=== PATIENT | male | born 1985 | race African-American/Black ===

== ENCOUNTER 2016-07-17 16:54 | Emergency (ER) | payer OTHER ==
[~2016-07-17] VITALS: Ht 170.2 cm; Wt 99.8 kg
[~2016-07-17 16:54] MED LIST: ANBESOL9 G1 TP; HYDROCODON-ACE1 EA15 ORAL; KEFLEX500 MG ORAL
[2016-07-17 17:10] VITALS: BP 120/71
[2016-07-17] MEDS ORDERED: IBUPROFEN600 MG ORAL (17:22)
[2016-07-17] MEDS ORDERED: CEPHALEXIN500 MG ORAL (17:22)
[2016-07-17] MEDS ORDERED: BACTRIM DS TAB1 EAC1 ORAL (17:22)
[2016-07-17 17:30] VITALS: BP 120/71
--- NOTE | 2016-07-17 22:12 | Emergency Room Report ---
History of Present Illness General Chief Complaint: Skin Rash/Abscess Source: Patient Present Illness [facility] The patient is a 30-year-old male presenting for bumps he noticed on his chest. He noticed this approximately one week prior. They are tender. Pain described as a 6/10 dull ache and is worse with touch. Pain does not radiate. He states that he popped one and noticed white discharge. He denies any other symptoms including nausea, vomiting, fever, chills Allergies: Coded Allergies: No Known Allergies (Unverified , 01/05/16) Patient History Past Medical History: see triage record Pertinent Family History: none Reviewed Nursing Documentation: PMH: Agreed, PSxH: Agreed Nursing Documentation-PMH Past Medical History: No Stated History Hx Diabetes: Yes Hx Gastrointestinal Problems: Yes - Heartburn Review of Systems All Other Systems: negative except mentioned in HPI Physical Exam Vital Signs Date Time Temp Pulse Resp B/P Pulse Ox O2 Delivery O2 Flow Rate FiO2 07/17/16 17:02 98.8 65 14 120/71 95 Room Air Sp02 EP Interpretation: reviewed, normal General Appearance: no apparent distress, alert, GCS 15, non-toxic Head: normocephalic, atraumatic Eyes: bilateral eye PERRL, bilateral eye normal inspection ENT: hearing grossly normal, normal pharynx, no angioedema, normal voice Respiratory: chest non-tender, lungs clear, normal breath sounds, speaking full sentences Musculoskeletal: back normal, gait/station normal, normal range of motion Neurologic: alert, oriented x3, responsive, motor strength/tone normal, sensory intact, speech normal Psychiatric: judgement/insight normal, memory normal, mood/affect normal, no suicidal/homicidal ideation Skin: well hydrated, normal turgor, other - There are 3 < 2cm indurated nodules of the chest. Non fluctuant. Erythematous. Tender. No DC. Lymphatic: no adenopathy Medical Decision Making PA Attestation Dr. Murphy is my supervising physician. Patient management was discussed with my supervising physician Diagnostic Impression: Primary Impression: Abscess ER Course The patient is a 30-year-old male presenting for bumps he noticed on his chest. Differential diagnoses considered but not limited to: abscess, cellulitis, insect bite, folliculitis PE: vitals WNL. NAD There are 3 < 2cm indurated nodules of the chest. Non fluctuant. Erythematous. Tender. No DC. Findings most consistent with abscess. Not ready for incision and drainage The patient be placed on antibiotics and is given indications to return for I&D. ER precautions given Chest X-Ray Diagnostic Results Chest X-Ray Ordered: No Last Vital Signs Date Time Temp Pulse Resp B/P Pulse Ox O2 Delivery O2 Flow Rate FiO2 07/17/16 17:30 98.8 14 120/71 95 Room Air 07/17/16 17:02 65 Status: improved Disposition: HOME, SELF-CARE Condition: Improved Scripts Ibuprofen* (MOTRIN*) 600 Mg Tablet 600 MG ORAL Q8H Y for For Pain, #30 TAB 0 Refills Prov: ALEXAANJEN P.A. 07/17/16 Trimethoprim/Sulfamethoxazole 160/800* (BACTRIM DS TABLET*) 1 Each Tablet 1 TAB ORAL TWICE A DAY, #14 TAB Prov: JEN BURRIS P.A. 07/17/16 Cephalexin* (KEFLEX*) 500 Mg Capsule 500 MG ORAL EVERY 6 HOURS, #28 CAP Prov: JEN BURRIS P.A. 07/17/16 Referrals: [facility],REFERRING (PCP) Patient Instructions: Abscess Additional Instructions: I discussed my findings with the patient. All questions and concerns have been answered. Treatment and medication compliance have been addressed. I advised the patient that they need to follow up with PMD in 3-5 days. Return to ED if symptoms worsen, new symptoms arise, or if needed for any reason. Patient verbalized understanding of discharge instructions. The patient is given indications to return for incision and drainage JEN BURRIS Jul 17, 2016 22:12
== END 2016-07-17 17:45 | disposition home or self-care (01) ==
LOC: EMR 17:39
DX: L02.213 Cutaneous abscess of chest wall (principal); R22.2 Localized swelling, mass and lump, trunk; R21 Rash and other nonspecific skin eruption; E11.9 Type 2 diabetes mellitus without complications; R12 Heartburn
CPT/HCPCS: 99284

== ENCOUNTER 2017-03-12 18:54 | Emergency (ER) | payer OTHER ==
[~2017-03-12] VITALS: Ht 172.7 cm; Wt 101.2 kg
[~2017-03-12 18:54] MED LIST changes: +BACTRIM DS TAB1 EAC1 ORAL; +CEPHALEXIN500 MG ORAL; +IBUPROFEN600 MG ORAL
[2017-03-12] MEDS ORDERED: CEPHALEXIN500 MG ORAL (19:24)
[2017-03-12] MEDS ORDERED: IBUPROFEN600 MG ORAL (19:24)
[2017-03-12] MEDS ORDERED: BACTRIM DS TAB1 EAC1 ORAL (19:24)
--- NOTE | 2017-03-12 19:25 | Emergency Room Report ---
History of Present Illness General Chief Complaint: Skin Rash/Abscess Source: Patient (Lokesh Mcclain) Present Illness HPI 31 yo male patient presents to ER complaining of abscess on chest. Patient reports abscess has been present for 2 days. Patient reports abscess is painful to touch. Patient denies drainage from abscess. Patient reports history of similar symptoms in the past; states he had abscess drained in ER previously. Patient states he has not been seen by PCP or desk operator for further evaluation and treatment. Patient denies fever, shortness of breath, rash. (Lokesh Mcclain) Allergies: Coded Allergies: No Known Allergies (Unverified , 01/05/16) Patient History Past Medical History: see triage record Pertinent Family History: none Reviewed Nursing Documentation: PMH: Agreed, PSxH: Agreed (Lokesh Mcclain) Nursing Documentation-PMH Past Medical History: No Stated History Hx Diabetes: Yes Hx Gastrointestinal Problems: Yes - Heartburn (Lokesh Mcclain) Review of Systems All Other Systems: negative except mentioned in HPI (Lokesh Mcclain) Physical Exam Vital Signs Date Time Temp Pulse Resp B/P (MAP) Pulse Ox O2 Delivery O2 Flow Rate FiO2 03/12/17 19:01 97.5 75 16 134/84 99 Room Air Sp02 EP Interpretation: reviewed, normal General Appearance: no apparent distress, alert, GCS 15, non-toxic Head: normocephalic, atraumatic Eyes: bilateral eye normal inspection, bilateral eye PERRL ENT: hearing grossly normal, normal pharynx, no angioedema, normal voice Neck: full range of motion, supple/symm/no masses Respiratory: chest non-tender, lungs clear, normal breath sounds, speaking full sentences Cardiovascular #1: regular rate, rhythm, no edema Musculoskeletal: back normal, gait/station normal, normal range of motion, non- tender, calf tenderness Neurologic: alert, oriented x3, responsive, motor strength/tone normal, sensory intact, speech normal Psychiatric: mood/affect normal Skin: other - chest: 1- 2 cm indurated abcess, TTP, no surrounding cellulitis, no drainage, no pus, does not come to a point (Lokesh Mcclain) Procedures Incision and Drainage Incision and Drainage : Consent: Verbal Site: chest Blade Size: 18 gauge needle I & D Procedure: betadine prep, sterile drapes applied, sterile dressing applied, gauze wick placed Wound Location: chest Wound's Depth, Shape: superficial Patient Tolerated: Well Complications: None Progress aspiration performed bloody drainage (Cole Diego M.D.) Medical Decision Making PA Attestation Dr. Diego is my supervising Physician whom patient management has been discussed with. (Lokesh Mcclain) Diagnostic Impression: Primary Impression: Abscess ER Course Pt. presents to the ED c/o abscess Ddx considered but are not limited to cellulitis, abscess, sebaceous cyst, carbuncle, folliculitis. Vital signs: are WNL, pt. is afebrile ORDERS: None required at this time. ED INTERVENTIONS: Patient was seen and evaluated by Dr. Diego. (see procedure note by Dr. Diego) Wound dressed. DISCHARGE: -Rx provided for Keflex -Rx provided for Bactrim -Rx provided for Ibuprofen At this time pt. is stable for d/c to home. Patient states understanding and agreement to treatment plan. Will provide printed patient care instructions and any necessary prescriptions. Care plan and follow up instructions have been discussed with the patient prior to discharge. Patient instructed to follow-up with primary care provider in 2 - 3 days for wound recheck. Patient questions asked and answered. ER precautions given. Patient instructed to return to ER immediately for any new or worsening of symptoms including but not limited to fever, worsening of pain symptoms. (Lokesh Mcclain) Last Vital Signs Date Time Temp Pulse Resp B/P (MAP) Pulse Ox O2 Delivery O2 Flow Rate FiO2 03/12/17 19:01 97.5 75 16 134/84 99 Room Air (Lokesh Mcclain) Disposition: HOME, SELF-CARE Condition: Stable Scripts Ibuprofen* (MOTRIN*) 600 Mg Tablet 600 MG ORAL Q6H Y for For Pain, #30 TAB Prov: Lokesh Mcclain 03/12/17 Trimethoprim/Sulfamethoxazole 160/800* (BACTRIM DS TABLET*) 1 Each Tablet 1 TAB ORAL TWICE A DAY for 7 Days, #14 TAB Prov: Lokesh Mcclain 03/12/17 Cephalexin* (KEFLEX*) 500 Mg Capsule 500 MG ORAL EVERY 12 HOURS for 7 Days, #14 CAP 0 Refills Prov: Lokesh Mcclain 03/12/17 Patient Instructions: Abscess Additional Instructions: Followup with primary care provider in 3 -5 days. Take medications as directed. Patient questions asked and answered. ER precautions given, patient instructed to return to ER immediately for any new or worsening of symptoms. Lokesh Mcclain Mar 12, 2017 19:24 Cole Diego M.D. Mar 14, 2017 14:05
[2017-03-12 19:41] VITALS: BP 134/84
== END 2017-03-12 19:41 | disposition home or self-care (01) ==
LOC: EMR 19:21
DX: L02.213 Cutaneous abscess of chest wall (principal); E11.9 Type 2 diabetes mellitus without complications
CPT/HCPCS: 99284

== ENCOUNTER 2018-11-02 20:39 | Emergency (ER) | payer OTHER ==
[~2018-11-02] VITALS: Ht 172.7 cm; Wt 107.5 kg
[2018-11-02 21:20] VITALS: BP 144/91
--- NOTE | 2018-11-02 21:20 | NUR ---
ED Nurse Note: pt is AAOx4, VSS, with no acute distress. Pt C/O NUMBNESS TO BILAT HANDS WITH FOR PAST 3 MONTHS W/ INTERMITTENT HAND PAIN IN MORNINGS.
--- NOTE | 2018-11-02 21:41 | Emergency Room Report ---
History of Present Illness General Chief Complaint: General Complaint Source: Patient Present Illness HPI 33-year-old male presents to the ED with numbness and tingling in the hands, following a median nerve distribution, patient denies any aggravating or relieving factors severity is mild, intermittent patient denies any fevers chills chest pain shortness of breath patient presents for evaluation Allergies: Coded Allergies: No Known Allergies (Unverified , 11/02/18) Patient History Past Medical History: see triage record Reviewed Nursing Documentation: PMH: Agreed; PSxH: Agreed Nursing Documentation-PMH Past Medical History: No Stated History Hx Diabetes: Yes Hx Gastrointestinal Problems: Yes - Heartburn Review of Systems All Other Systems: negative except mentioned in HPI Physical Exam Vital Signs Date Time Temp Pulse Resp B/P (MAP) Pulse Ox O2 Delivery O2 Flow Rate FiO2 11/02/18 21:10 98.1 83 20 144/91 (108) 95 Room Air General Appearance: well appearing, no apparent distress Head: normocephalic, atraumatic ENT: hearing grossly normal, normal voice Neck: full range of motion, supple Respiratory: no respiratory distress, speaking full sentences Musculoskeletal: other - Bilateral upper extremities: 2+ radial pulses sensation grossly intact in the radial median ulnar nerve dissipation 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 Wrist splints at night disposition home with return precautions Last Vital Signs Date Time Temp Pulse Resp B/P (MAP) Pulse Ox O2 Delivery O2 Flow Rate FiO2 11/02/18 21:10 98.1 83 20 144/91 (108) 95 Room Air Disposition: HOME, SELF-CARE Condition: Stable Referrals: NOT CHOSEN [facility]/,REFERRING (PCP) [facility] Patient Instructions: Carpal Tunnel Syndrome, [id number], Peripheral Neuropathy Additional Instructions: The patient was provided with discharge instructions, notified to follow-up with a primary care doctor and or specialist in the next 24-48 hours, and to return to the ED if they have worsening of their symptoms. Please note that this report is being documented using [employer] technology. This can lead to erroneous entry secondary to incorrect interpretation by the dictating instrument. WRIST SPLINTS FOR CARPAL TUNNEL AT NIGHT PLEASE FOLLOW-UP WITH PCP FOR A1C CHECK, AND FOLLOW-UP WITH NEUROLOGY FOR NERVE CONDUCTION STUDIES Sameer Gonzalez MD Nov 02, 2018 21:41
--- NOTE | 2018-11-02 21:50 | NUR ---
ED Nurse Note: MD at bed side. pt BS 99. VSS, no acute distress.
[2018-11-02 22:02] VITALS: BP 144/91
--- NOTE | 2018-11-02 22:02 | NUR ---
ER DISCHARGE NOTE: Patient is cleared to be discharged per ERMD, pt is aox4, on room air, with stable vital signs. pt was given dc and prescription instructions, pt was able to verbalize understanding, pt id band and iv site removed without complications. pt is able to ambulate with steady gait. pt took all belongings. Pt left with Bi-lat wrist brace and verbalized understanding of how to use them.
== END 2018-11-02 22:02 | disposition home or self-care (01) ==
LOC: EMR 21:37
DX: E11.40 Type 2 diabetes mellitus with diabetic neuropathy, unspecified (principal); G56.03 Carpal tunnel syndrome, bilateral upper limbs
CPT/HCPCS: 99282